=== PATIENT | male | born 1985 | race Caucasian/White ===

== ENCOUNTER 2017-08-22 22:02 | Emergency (ER) | payer OTHER ==
[~2017-08-22] VITALS: Ht 188 cm; Wt 124.7 kg
[~2017-08-22 22:02] MED LIST: AMOX500 PO
== END 2017-08-23 01:36 | disposition home or self-care (01) ==
LOC: ER 22:02
DX: S16.1XXA Strain of muscle, fascia and tendon at neck level, initial encounter (principal); V43.54XA Car driver injured in collision with van in traffic accident, initial encounter; Z87.891 Personal history of nicotine dependence
CPT/HCPCS: 70450; 72125; 99284